=== PATIENT | female | born 1990 ===

== ENCOUNTER 2021-10-14 10:35 | Outpatient (CLI) | payer OTHER | END 2021-10-14 11:45 | disposition home or self-care (01) | LOC: PRENATAL 10:35 | PROVIDERS: ATTEND Obstetrics & Gynecology Maternal & Fetal Medicine | DX: O35.0XX0 Maternal care for (suspected) central nervous system malformation in fetus, not applicable or unspecified (principal); O35.3XX0 Maternal care for (suspected) damage to fetus from viral disease in mother, not applicable or unspecified; O44.00 Complete placenta previa NOS or without hemorrhage, unspecified trimester; Z3A.19 19 weeks gestation of pregnancy ==

== ENCOUNTER 2021-11-27 21:58 | Outpatient (CLI) | payer OTHER ==
[~2021-11-27] VITALS: Ht 170.2 cm; Wt 127.0 kg
[2021-11-27] MEDS ORDERED: CHILDREN'S ASPI81 MG (22:11)
[2021-11-27] MEDS ORDERED: PRENATAL CAPLE1 EAC1 PO (22:11)
== END 2021-11-28 13:07 | disposition home or self-care (01) ==
LOC: OBS/DEL 21:58
PROVIDERS: ATTEND Obstetrics & Gynecology
DX: O46.8X2 Other antepartum hemorrhage, second trimester (principal); Z3A.23 23 weeks gestation of pregnancy

== ENCOUNTER 2022-02-08 11:59 | Outpatient (CLI) | payer OTHER ==
[~2022-02-08 11:59] MED LIST: CHILDREN'S ASPI81 MG; PRENATAL CAPLE1 EAC1 PO
== END 2022-02-08 18:42 | disposition home or self-care (01) ==
LOC: OBS/DEL 11:59
PROVIDERS: ATTEND Obstetrics & Gynecology
DX: O36.8130 Decreased fetal movements, third trimester, not applicable or unspecified (principal); Z3A.33 33 weeks gestation of pregnancy

== ENCOUNTER 2022-03-25 17:33 | Inpatient (IN) | payer OTHER ==
[~2022-03-25] VITALS: Ht 170.2 cm; Wt 132.4 kg
== END 2022-03-30 11:47 | disposition home or self-care (01) | DRG 807 ==
LOC: OBS/DEL 17:33 → OB/GYN 03-26 10:43 → LDR 03-26 10:43 → OB/GYN 03-28 07:00
PROVIDERS: ADMIT Obstetrics & Gynecology; ATTEND Obstetrics & Gynecology
PROC: BY4FZZZ Ultrasonography of Third Trimester, Single Fetus (ICD-10-PCS; 2022-03-25)
PROC: 4A1HXCZ Monitoring of Products of Conception, Cardiac Rate, External Approach (ICD-10-PCS; 2022-03-26)
PROC: 10E0XZZ Delivery of Products of Conception, External Approach (ICD-10-PCS; principal; 2022-03-28)
PROC: 0HQ9XZZ Repair Perineum Skin, External Approach (ICD-10-PCS; 2022-03-28)
DX: O70.0 First degree perineal laceration during delivery (principal); Z37.0 Single live birth; Z3A.39 39 weeks gestation of pregnancy; Z20.822 Contact with and (suspected) exposure to COVID-19